=== PATIENT | male | born 2000 | race Caucasian/White ===

== ENCOUNTER 2023-06-13 07:35 | Inpatient (IN) | payer OTHER, MEDICAID ==
[~2023-06-13] VITALS: Ht 177.8 cm; Wt 66.7 kg
[2023-06-13 08:12] LABS: BASOPHILS % (AUTO) 0.5 % (0.0-2.0); EOSINOPHILS % (AUTO) 0.3 % (1.0-6.0); HEMATOCRIT 52.9 % (41-53); HEMOGLOBIN 16.9 g/dL (13.5-17.5); LYMPHOCYTES # (AUTO) 1.7 K/uL (1.0-4.8); LYMPHOCYTES % (AUTO) 29.5 % (22.0-44.0); MEAN CORPUSCULAR HEMOGLOBIN 28.2 pg (26.0-34.0); MEAN CORPUSCULAR HGB CONC 31.8 G/dL (31.0-37.0); MEAN CORPUSCULAR VOLUME 89 fL (80-100); MONOCYTES # (AUTO) 0.3 K/uL (0.1-1.0); MONOCYTES % (AUTO) 5.8 % (2.0-9.0); NEUTROPHILS # (AUTO) 3.6 K/uL (1.8-7.7); NEUTROPHILS % (AUTO) 63.9 % (40.0-70.0); PLATELET COUNT (AUTO) 126 K/uL (150-450); RED BLOOD CELL COUNT(AUTO) 5.98 MIL/uL (4.50-5.90); WHITE BLOOD COUNT (AUTO) 5.6 K/uL (4.5-11.0)
[2023-06-13 08:22] LABS: ANION GAP 13 mmol/L (8-16); CALCIUM, TOTAL 9.2 mg/dL (8.8-10.5); CARBON DIOXIDE 23 mmol/L (22-29); CHLORIDE 101 mmol/L (98-107); CREATININE 1.08 mg/dL (0.60-1.30); GLOMERULAR FILTR. RATE CALC > 60 mL/min (>60); GLUCOSE,RANDOM 102 mg/dL (70-110); POTASSIUM 3.6 mmol/L (3.5-5.1); SODIUM SERUM 137 mmol/L (136-145); UREA NITROGEN, BLOOD 16 mg/dL (7-18)
[2023-06-13 08:27] LABS: ALANINE AMINOTRANSFERASE 16 U/L (12-78); ALBUMIN 4.3 g/dL (3.4-5.0); ALKALINE PHOSPHATASE 87 U/L (46-116); ASPARTATE AMINOTRANSFERASE 21 U/L (15-37); BILIRUBIN,TOTAL 2.5 mg/dL (0.1-1.0); TOTAL PROTEIN, SERUM 7.8 g/dL (6.4-8.2)
[2023-06-13] MEDS ORDERED: LURA80TA2 PO (08:32)
[2023-06-13 09:09] LABS: ALCOHOL, BLOOD (SERUM) < 3 mg/dL (0-10)
[2023-06-13] MEDS ORDERED: ASPI-1450 PO (10:06)
[2023-06-13] MEDS ORDERED: FAMO20 PO (10:09)
[2023-06-13] MEDS ORDERED: LORA10TA7 PO (10:09)
[2023-06-13 10:18] LABS: COVID AG,FIA SOURCE NASAL SWAB
[2023-06-13] MEDS ORDERED: QUEtiapine FUMARATE 100 MG TABLET PO PRN (10:30)
[2023-06-13] MEDS ORDERED: LORazepam 2 MG TABLET PO PRN (10:30)
[2023-06-13 10:46] LABS: SARS-COV2 (COVID) ANTIGEN,FIA Negative (Negative)
[2023-06-13 14:00] LABS: APPEARANCE,URINE CLEAR (CLEAR); BILIRUBIN,URINE NEGATIVE (NEGATIVE); COLOR,URINE YELLOW (YELLOW); GLUCOSE, URINE (UA) NEGATIVE (NEGATIVE); KETONES,URINE NEGATIVE (NEGATIVE); LEUKOCYTE ESTERASE ,URINE NEGATIVE (NEGATIVE); NITRATE,URINE NEGATIVE (NEGATIVE); OCCULT BLOOD,URINE NEGATIVE (NEGATIVE); PROTEIN,URINE TRACE mg/dL (NEGATIVE); SPECIFIC GRAVITIY, URINE 1.027 (1.003-1.030); UROBILINOGEN,URINE <=1.0 mg/dL (<=1.0)
[2023-06-13 14:06] LABS: ALCOHOL, URINE DRUG SCREEN NEGATIVE (NEGATIVE); AMPHET/METH SCREEN,URINE NEGATIVE (NEGATIVE); BARBITURATE SCREEN, URINE NEGATIVE (NEGATIVE); BENZODIAZEPINES SCREEN,URINE NEGATIVE (NEGATIVE); CANNABINOID SCREEN,URINE POSITIVE (NEGATIVE); COCAINE SCREEN,URINE NEGATIVE (NEGATIVE); METHADONE SCREEN, URINE NEGATIVE (NEGATIVE); OPIATE SCREEN,URINE NEGATIVE (NEGATIVE); PHENCYCLIDINE SCREEN,URINE NEGATIVE (NEGATIVE)
[2023-06-13] MEDS ORDERED: MONT4GRA2 PO (23:04)
[2023-06-14] MEDS ORDERED: ASPIRIN 81 MG CHEWABLE TABLET PO SCH (10:45)
[2023-06-14] MEDS ORDERED: DiphenhydrAMINE HCL 50 MG/ML VIAL ONE (14:18)
[2023-06-14] MEDS ORDERED: HALOPERIDOL LACTATE 5 MG/ML VIAL ONE (14:18)
[2023-06-14] MEDS ORDERED: LORazepam 2 MG/ML VIAL ONE (14:18)
[2023-06-14] MEDS ORDERED: DiphenhydrAMINE HCL 50 MG/ML VIAL IM ONE (14:30)
[2023-06-14] MEDS ORDERED: LORazepam 2 MG/ML VIAL IM ONE (14:30)
[2023-06-14] MEDS ORDERED: HALOPERIDOL LACTATE 5 MG/ML VIAL IM ONE (14:30)
[2023-06-16] MEDS: ZOLPIDEM TARTRATE 10 MG TABLET PO PRN ×2 (03:20→22:42)
[2023-06-16] MEDS ORDERED: ASPI-1522 PO (11:25)
[2023-06-16] MEDS ORDERED: MONT-40 PO (11:25)
[2023-06-16] MEDS ORDERED: METF-1211 PO (11:25)
[2023-06-16 11:55] VITALS: BP 127/86; PULSE 89; RESP 18; TEMP 97.7; O2SAT 99
[2023-06-16] MEDS ORDERED: PNEUMOCOCCAL VACCINE POLYVALENT 0.5 ML SYRINGE [PPSV23] IM. ONE (12:30)
[2023-06-16 20:13] VITALS: BP 125/82; PULSE 97; RESP 18; TEMP 98.2; O2SAT 97
[2023-06-17] MEDS: MONTELUKAST SODIUM 10 MG TABLET PO SCH (08:06)
[2023-06-17] MEDS: ASPIRIN 81 MG CHEWABLE TABLET PO SCH (08:06)
[2023-06-17] MEDS: LORATADINE 10 MG TABLET PO SCH (08:06)
[2023-06-17 08:37] VITALS: BP 148/88; PULSE 109; RESP 18; TEMP 97.1; O2SAT 99
[2023-06-17] MEDS ORDERED: PETROLATUM,WHITE 28 GM JELLY TP PRN (16:15)
[2023-06-17] MEDS ORDERED: ALBUTEROL SULFATE HFA 90 MCG/PUFF 8 GM INHALER IH PRN (16:15)
[2023-06-17] MEDS ORDERED: LOPERAMIDE HCL 2 MG CAPSULE PO PRN (16:15)
[2023-06-17] MEDS ORDERED: IBUPROFEN 400 MG TABLET PO PRN (16:15)
[2023-06-17] MEDS ORDERED: GuaiFENesin/D-METHORPHAN [SUGAR-FREE] 200-20MG/10 ML SYRUP UDCUP PO PRN (16:15)
[2023-06-17] MEDS ORDERED: MAGNESIUM HYDROXIDE SUSPENSION 30 ML UDCUP PO PRN (16:15)
[2023-06-17] MEDS ORDERED: CloNIDine HCL 0.1 MG TABLET PO PRN (16:15)
[2023-06-17] MEDS ORDERED: ACETAMINOPHEN 325 MG TABLET PO PRN (16:15)
[2023-06-17] MEDS ORDERED: MAG HYDROX/AL HYDROX/SIMETH ES 30 ML SUSPENSION UDCUP PO PRN (16:15)
[2023-06-17] MEDS ORDERED: ONDANSETRON HCL 4 MG TABLET PO PRN (16:15)
[2023-06-17] MEDS ORDERED: DOCUSATE SODIUM 100 MG CAPSULE PO PRN (16:15)
[2023-06-17] MEDS ORDERED: NICOTINE 14 MG/24 HOUR PATCH TD PRN (16:15)
[2023-06-17] MEDS: LURASIDONE HCL 80 MG TABLET PO SCH (17:27)
[2023-06-17] MEDS: FAMOTIDINE 20 MG TABLET PO SCH (17:27)
[2023-06-17 20:11] VITALS: BP 142/86; PULSE 95; RESP 20; TEMP 97.8; O2SAT 100
[2023-06-17] MEDS: MetFORMIN HCL 500 MG TABLET PO SCH (20:19)
[2023-06-17] MEDS ORDERED: MetFORMIN HCL 500 MG TABLET PO SCH (21:00)
[2023-06-18] MEDS: ASPIRIN 81 MG CHEWABLE TABLET PO SCH (08:08)
[2023-06-18] MEDS: LORATADINE 10 MG TABLET PO SCH (08:08)
[2023-06-18] MEDS: FAMOTIDINE 20 MG TABLET PO SCH ×2 (08:08→17:07)
[2023-06-18] MEDS: MONTELUKAST SODIUM 10 MG TABLET PO SCH (08:09)
[2023-06-18 08:14] VITALS: BP 128/72; PULSE 69; RESP 17; TEMP 97.7; O2SAT 100
[2023-06-18 08:54] LABS: HEMOGLOBIN A1C 4.6 % (3.8-5.6)
[2023-06-18] MEDS ORDERED: MONTELUKAST SODIUM 10 MG TABLET PO SCH (09:00)
[2023-06-18 09:08] LABS: CHOL/HDL RATIO 2.6 (4.2-7.3); THYROID STIMULATING HORMONE 1.81 uIU/mL (0.36-3.74)
[2023-06-18] MEDS: ASPIRIN 81 MG DR TABLET PO SCH (10:00)
[2023-06-18] MEDS: LURASIDONE HCL 80 MG TABLET PO SCH (17:07)
[2023-06-18 20:22] VITALS: BP 124/80; PULSE 64; RESP 20; TEMP 98; O2SAT 100
[2023-06-18] MEDS: MetFORMIN HCL 500 MG TABLET PO SCH (20:42)
[2023-06-19] MEDS: FAMOTIDINE 20 MG TABLET PO SCH (08:10)
[2023-06-19] MEDS: MONTELUKAST SODIUM 10 MG TABLET PO SCH (08:10)
[2023-06-19] MEDS: LORATADINE 10 MG TABLET PO SCH (08:10)
[2023-06-19] MEDS: ASPIRIN 81 MG DR TABLET PO SCH (08:10)
[2023-06-19 08:28] VITALS: BP 135/94; PULSE 85; RESP 18; TEMP 98.2; O2SAT 99
== END 2023-06-19 16:20 | disposition home or self-care (01) | DRG 885 ==
LOC: EMS 07:40 → B3A 06-16 08:11
PROVIDERS: ADMIT Psychiatry & Neurology Psychiatry; ATTEND Psychiatry & Neurology Psychiatry
DX: F20.0 Paranoid schizophrenia (principal); R45.851 Suicidal ideations; Z20.822 Contact with and (suspected) exposure to COVID-19; F31.9 Bipolar disorder, unspecified; K21.9 Gastro-esophageal reflux disease without esophagitis; J45.909 Unspecified asthma, uncomplicated; E11.9 Type 2 diabetes mellitus without complications; S00.81XA Abrasion of other part of head, initial encounter; S00.83XA Contusion of other part of head, initial encounter; W18.39XA Other fall on same level, initial encounter; Z88.2 Allergy status to sulfonamides; Y93.89 Activity, other specified; Y92.89 Other specified places as the place of occurrence of the external cause; Y99.8 Other external cause status
CPT/HCPCS: 80053; 80061; 80307; 81003; 83036; 84443; 85025; 99285; G0480; J1200; J1630; J2060